=== PATIENT | female | born 1945 | race Caucasian/White ===

== ENCOUNTER → 2020-02-02 | Outpatient (CLI) | payer MEDICARE ==
[~2020-02-02] MED LIST: Will bring list DOS
[2020-02-02 12:50] LABS: ALANINE AMINOTRANSFERASE 34 U/L (12-78); ALBUMIN 3.8 g/dL (3.4-5.0); ANION GAP 3 mmol/L (5-15); CALCIUM 9.7 mg/dL (8.5-10.1); CHLORIDE 104 mmol/L (98-107); CREATININE 1.26 mg/dL (0.55-1.02)
[2020-02-02 12:53] LABS: ALKALINE PHOSPHATASE 89 U/L (45-117); BILIRUBIN,TOTAL 0.5 mg/dL (0.2-1.0); TOTAL PROTEIN 7.5 g/dL (6.4-8.2)
== END | disposition home or self-care (01) ==
LOC: MERGE 11:28 → UNMERGE 11:28 → STAR 11:28
PROVIDERS: ATTEND Orthopaedic Surgery
DX: Z01.818 Encounter for other preprocedural examination (principal); T84.89XD Other specified complication of internal orthopedic prosthetic devices, implants and grafts, subsequent encounter; Z96.652 Presence of left artificial knee joint
CPT/HCPCS: 36415; 80053; 93005

== ENCOUNTER 2020-02-06 12:59 | Day surgery (SDC) | payer MEDICARE ==
[~2020-02-06] VITALS: Ht 160 cm; Wt 108.2 kg
[~2020-02-06 12:59] MED LIST changes: +ROPIvacaine/PF 0.2%, 20 ML ONE
[2020-02-06] MEDS ORDERED: CHLORHEXIDINE 15 ML UDC MM ONE (13:30)
[2020-02-06] MEDS ORDERED: LACTATED RINGERS 1,000 ML IV SCH (13:33)
[2020-02-06] MEDS ORDERED: LEVO125T5 PO (13:47)
[2020-02-06] MEDS ORDERED: EZET10TA70 PO (13:47)
[2020-02-06] MEDS ORDERED: ATOR20TA37 PO (13:47)
[2020-02-06] MEDS ORDERED: OMEP-110 PO (13:47)
[2020-02-06] MEDS ORDERED: METO25TA91 PO (13:47)
[2020-02-06] MEDS ORDERED: ASPI-496 PO (13:47)
[2020-02-06] MEDS ORDERED: BUSP15TA PO (13:47)
[2020-02-06] MEDS ORDERED: SERT100T32 PO (13:47)
[2020-02-06] MEDS ORDERED: LIDOCAINE-MPF 1%, 2ML INFIL ONE (14:00)
[2020-02-06] MEDS ORDERED: LIDOCAINE-MPF 2% ,5ML ONE (14:17)
[2020-02-06] MEDS ORDERED: PROPOFOL 10 MG/ML, 20ML ONE (14:17)
[2020-02-06] MEDS ORDERED: FENTANYL PF 100 MCG/2ML ONE ×2 (14:17→15:28)
[2020-02-06] MEDS ORDERED: CEFAZOLIN 1,000 MG ONE ×2 (14:20)
[2020-02-06] MEDS ORDERED: DEXAMETHASONE 4 MG/ML, 1ML ONE (14:24)
[2020-02-06] MEDS ORDERED: ONDANSETRON 2MG/ML, 2ML IVPush PRN (14:30)
[2020-02-06] MEDS ORDERED: ONDANSETRON 2MG/ML, 2ML ONE (15:04)
[2020-02-06] MEDS ORDERED: ACETAMINOPHEN 650 MG/20.3 ML UDC ONE (15:27)
[2020-02-06] MEDS: FENTANYL PF 100 MCG/2ML IV PRN ×4 (15:32→16:05)
[2020-02-06] MEDS ORDERED: OXYcodone 5 MG/5 ML ORAL.SOL UDC ONE (15:52)
[2020-02-06] MEDS ORDERED: ACETAMINOPHEN 650 MG/20.3 ML UDC PO PRN (16:00)
[2020-02-06] MEDS ORDERED: OXYcodone 5 MG/5 ML ORAL.SOL UDC PO PRN (16:00)
[2020-02-06] MEDS ORDERED: CHLORHEXIDINE 15 ML UDC ONE (21:55)
== END 2020-02-06 17:10 | disposition home or self-care (01) ==
LOC: OUT 12:59 → UNMERGE 15:00 → MERGE 15:00 → OUT 17:10
PROVIDERS: ATTEND Orthopaedic Surgery
DX: T84.84XA Pain due to internal orthopedic prosthetic devices, implants and grafts, initial encounter (principal); Z11.59 Encounter for screening for other viral diseases; I10 Essential (primary) hypertension; E78.5 Hyperlipidemia, unspecified; Y83.2 Surgical operation with anastomosis, bypass or graft as the cause of abnormal reaction of the patient, or of later complication, without mention of misadventure at the time of the procedure; Z88.5 Allergy status to narcotic agent; Z79.82 Long term (current) use of aspirin; Z79.899 Other long term (current) drug therapy; Z82.49 Family history of ischemic heart disease and other diseases of the circulatory system
CPT/HCPCS: 20680; 36415; 73590; 87635; J0690; J1100; J2405; J2704; J2795; J3010; J7120; 76000